=== PATIENT | female | born 1945 | race Caucasian/White ===

== ENCOUNTER → 2017-02-07 | Outpatient (CLI) | payer BC ==
[~2017-02-07] MED LIST: CHOL100010 PO; LEVO75TA PO; LISI10TA PO; TIMO0.2528 OPB
== END | disposition home or self-care (01) ==
LOC: C.PAPS 11:16
PROVIDERS: ATTEND Obstetrics & Gynecology
DX: Z12.4 Encounter for screening for malignant neoplasm of cervix (principal); Z78.0 Asymptomatic menopausal state

== ENCOUNTER → 2017-05-23 | Outpatient (CLI) | payer BC ==
[2017-05-23 14:18] LABS: ALT/SGPT 24 U/L (12-78); AST/SGOT 19 U/L (15-37); BLOOD UREA NITROGEN 13 mg/dl (7-18); BUN/CREATININE RATIO 15.9 (10-20); CALCIUM 8.9 mg/dl (8.5-10.1); CARBON DIOXIDE 23 mmol/L (21-32); CHLORIDE 106 mmol/L (98-107); GLUCOSE 78 mg/dl (70-99); POTASSIUM 3.9 mmol/L (3.5-5.1); SODIUM 138 mmol/L (136-145)
[2017-05-23 14:26] LABS: ALB/GLOB RATIO 1.2 (0.9-2); ALKALINE PHOSPHATASE 68 U/L (45-117); CHOLESTEROL 222 mg/dl (0-200); HDL CHOLESTEROL 55 mg/dl; TRIGLYCERIDES 144 mg/dl (0-150); VERY LOW DENSITY LIPOPROT CALC 29 mg/dl
== END | disposition home or self-care (01) ==
LOC: C.LABSPEC 12:40
PROVIDERS: ATTEND Internal Medicine
DX: I10 Essential (primary) hypertension (principal); E78.5 Hyperlipidemia, unspecified; E03.9 Hypothyroidism, unspecified

== ENCOUNTER → 2017-06-09 | Outpatient (CLI) | payer BC ==
--- NOTE | 2017-06-09 15:12 | MAMMOGRAPHY REPORT ---
BILATERAL DIGITAL SCREENING MAMMOGRAM WITH CAD: 06/09/2017 CLINICAL HISTORY: Routine screening. Patient has no complaints. TECHNIQUE: Bilateral CC and MLO views were obtained. Current study was also evaluated with a Compute r Aided Detection (CAD) system. COMPARISON: Comparison is made to exams dated: 06/03/2016 mammogram, 06/01/2015 mammogram, 4 mammogram, 05/27/2013 mammogram, 05/26/2012 mammogram, and 05/24/2011 mammogram - [facility]. BREAST COMPOSITION: The tissue of both breasts is heterogeneously dense, which may obscure small mas ses. FINDINGS: Loosely grouped punctate microcalcifications in the upper outer posterior right breast appe ars similar to prior mammograms dating back to at least 05/23/2010, therefore likely benign. No new suspicious mass, architectural distortion or cluster of microcalcifications is seen. IMPRESSION: ACR BI-RADS CATEGORY 1: NEGATIVE There is no mammographic evidence of malignancy. A 1 year screening mammogram is recommended. The pa tient will receive written notification of the results. Approximately 10% of breast cancers are not detected with mammography. A negative mammographic report should not delay biopsy if a clinically suggestive mass is present. Myriam Nelson M.D. ay/:06/09/2017 12:18:36 [place] [employer]older: Lynette RACHEL(Yahaira)(Damien)(BD), [facility] letter sent: Normal 1/2 BI-RADS Code: ACR BI-RADS Category 1: Negative
== END | disposition home or self-care (01) ==
LOC: C.MAMM 09:58
PROVIDERS: ATTEND Obstetrics & Gynecology
DX: Z12.31 Encounter for screening mammogram for malignant neoplasm of breast (principal)

== ENCOUNTER 2021-04-28 21:08 | Observation (INO) ==
[2021-04-28 21:57] LABS: Basophils # (auto) 0.09 K/uL (0-0.2); Basophils % (auto) 0.5 %; Eosinophils # (auto) 0.16 K/uL (0-0.5); Eosinophils % (auto) 0.9 %; Hematocrit (blood only) 43.9 % (37-47); Hemoglobin 15.2 g/dL (12.0-16.0); Immature Granulocytes # (auto) 0.06 K/uL (0.00-0.02); Immature Granulocytes % (auto) 0.3 %; Lymphocytes # (auto) 4.19 K/uL (1.2-3.4); Lymphocytes % (auto) 22.6 %; Mean Corpuscular Hemoglobin 28.4 pg (25-34); Mean Corpuscular Hgb Conc 34.6 g/dL (32-36); Mean Corpuscular Volume 81.9 fL (80-100); Mean Platelet Volume 9.5 fL (7.4-10.4); Monocytes # (auto) 1.15 K/uL (0.11-0.59); Monocytes % (auto) 6.2 %; Neutrophils # (auto) 12.87 K/uL (1.4-6.5); Neutrophils % (auto) 69.5 %; Platelet Count 255 K/uL (130-400); RDW Coefficient of Variation 13.4 % (11.5-14.5); RDW Standard Deviation 40.1 fL (36.4-46.3); Red Blood Count 5.36 M/uL (4.2-5.4); White Blood Count 18.52 K/uL (4.8-10.8)
[2021-04-28 22:14] LABS: Albumin Level 4.1 gm/dl (3.4-5.0); BUN Creatinine Ratio 18.2 (10-20); Calcium 9.4 mg/dl (8.5-10.1); Creatinine Clr Calc Pharmacy 26.2 ml/min; Est GFR (African American) 31.6 ml/min; Est GFR (Non-African American) 27.2 ml/min; Potassium 2.9 mmol/L (3.5-5.1)
[2021-04-28 22:17] LABS: Albumin Globulin Ratio 1.1 (0.9-2); Bilirubin,Total 0.8 mg/dl (0.2-1); Globulin 3.7 gm/dl (2.5-4.0); Total Protein 7.8 gm/dl (6.4-8.2)
[2021-04-28] MEDS ORDERED: SODIUM CHLORIDE 0.9% 1000ML 1,000 ML IV STA (22:35)
[2021-04-28] MEDS ORDERED: ERTAPENEM SODIUM 10 ML IV STA (22:35)
[2021-04-28] MEDS ORDERED: SODIUM CHLORIDE 0.9% 1000ML 1,000 ML IV ONE (22:35)
[2021-04-28] MEDS ORDERED: ONDANSETRON INJ 2 MG/ML 2 ML VIAL IV STA (22:35)
[2021-04-28] MEDS: POTASSIUM CHLORIDE / WTR 10 MEQ/100 ML PLCT IV SCH (22:51)
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
[2021-04-29 00:12] LABS: Appearance Urine Cloudy (Clear); Bilirubin Urine Negative (Negative); Blood Urine 1+ (Negative); Color Urine Yellow; Epithelial Cell Urine Auto >30 /lpf (0-5); Glucose Urine UA Negative (Negative); Ketones Urine 1+ (Negative); Leukocyte Esterase Urine Trace (Negative); Nitrite Urine Negative (Negative); Protein Urine Negative (Negative); Specific Gravity Urine 1.013 (1.000-1.030); Urobilinogen Urine Negative (Negative); pH Urine 5.5 (4.5-7.5)
[2021-04-29] MEDS: POTASSIUM CHLORIDE / WTR 10 MEQ/100 ML PLCT IV SCH (00:32)
[2021-04-29 00:34] LABS: Bacteria Urine Automated 1+ (Negative)
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
[2021-04-29] MEDS ORDERED: ERTAPENEM SODIUM 1,000 MG in SODIUM CHLORIDE 0.9% 50 ML IV SCH (02:13)
[2021-04-29] MEDS ORDERED: ONDANSETRON INJ 2 MG/ML 2 ML VIAL IV PRN (02:13)
[2021-04-29] MEDS ORDERED: LORazepam 0.5 MG TAB PO PRN (02:13)
[2021-04-29] MEDS ORDERED: ACETAMINOPHEN 325 MG TAB PO PRN (02:13)
[2021-04-29] MEDS ORDERED: SODIUM CHLORIDE 0.9% 1000ML 1,000 ML IV SCH (02:13)
--- NOTE | 2021-04-29 08:31 | CT Scan Report ---
ABDOMEN AND PELVIS CT WITHOUT CONTRAST CT DOSE: 821.38 mGycm HISTORY: vomiting, UTI TECHNIQUE: Multiaxial CT images of the abdomen and pelvis were performed without contrast. A dose lo wering technique was utilized adhering to the principles of ALARA. COMPARISON STUDY: None. FINDINGS: The lung bases are clear. The liver, spleen, adrenal glands, pancreas are unremarkable. Mil dly distended gallbladder. No gallbladder wall thickening. There are few bilateral renal hypo and hyp erdense lesions. These are incompletely characters on this noncontrast study but statistically repres ent simple and hyperdense cysts. No hydronephrosis. No renal or ureteral stones. No retroperitoneal l ymphadenopathy. The bladder, uterus, and bilateral adnexa are within normal limits. No pelvic free fl uid. Suboptimal evaluation for bowel pathology due to the lack of intravenous and oral contrast. Contreras steven, there is no definite bowel wall thickening or obstruction. Colonic diverticulosis. No evidence f or acute diverticulitis. Normal appendix. IMPRESSION: 1. No bowel wall thickening or obstruction. 2. Colonic diverticulosis. No evidence for acute diverticulitis. 3. Distended gallbladder. No gallbladder wall thickening. 4. Normal appendix. ACT 112: Negative or not required by law. Electronically signed by: Monty Higgins M.D. 04/29/2021 8:30 AM
[2021-04-29] MEDS: LEVOTHYROXINE SODIUM 100 MCG TABLET PO SCH (08:59)
[2021-04-29] MEDS: HEPARIN SOD 5,000 UNIT/0.5 ML VIAL SQ SCH ×2 (08:59→21:16)
[2021-04-29] MEDS: CHOLECALCIFEROL 1,000 UNITS 25 MCG TAB PO SCH (09:00)
[2021-04-29] MEDS: TAMOXIFEN CITRATE 10 MG TABLET PO SCH (09:00)
[2021-04-29] MEDS ORDERED: POTASSIUM CHLORIDE CRTAB 20 MEQ TABCR PO SCH (09:00)
--- NOTE | 2021-04-29 10:35 | XRay Report ---
XR chest 1V portable HISTORY: short of breath COMPARISON: Chest 08/03/2018. FINDINGS: The lungs are clear. Cardiac silhouette is normal in size. No pleural effusions. No pneumot horax. IMPRESSION: No acute process. ACT 112: Negative or not required by law. Electronically signed by: Monty Higgins M.D. 04/29/2021 10:33 AM
--- NOTE | 2021-04-29 18:19 | Communication Note ---
Date of Service: April 29, 2021 Bridge note Ashley is seen at the bedside this morning. She reports she feels much better. Feels that she is at/near her cognitive baseline, does not feel confused today. She is not having any fever/chills/sweats. Her nausea/diarrhea have greatly improved/resolved. Pleasant, reviewed course of illness and her UTI and use of Macrobid as potential causes/inciting factors. No additional questions or concerns at time of visit. General: A&Ox3. NAD. Cooperative. HEENT: Atraumatic, normocephalic. Pulm: CTAB A&P. -wheezes, -rales, -rhonchi. Symmetrical chest rise. No increase work of breathing. No respiratory distress. Cardiac: RRR, -mrg. Radial pulses intact and symmetrical. Abdominal: Nontender, nondistended, soft. BS present. Toxic encephalopathy 2/2 Macrodantin use, multifactorial with underlying UTI Continue UTI treatment as below Macrodantin discontinued Discussed with patient that this is not a good antibiotic choice for her in the future both because of poor efficacy and current reaction Improved, appears to be resolving/resolved Urinary tract infection Infected appearing UA. Leukocytosis to 18.52 Patient with history of ESBL E. coli in the past Continue ertapenem 1 g daily, narrow based on urine culture sensitivities YOLIS Creatinine elevated from baseline of normal to 1.8 HCTZ and lisinopril held Of note patient is in the process of converting from lisinopril to an ARB as outpatient although she does not remember the name of the ARB and is waiting for the medication in the mail Suspect prerenal BMP daily, fluid hydration When creatinine normalizes resume HCTZ, substitute losartan for lisinopril Hypokalemia Potassium on admission 2.9 Repletion ordered, being given MG pending Repeat BMP pending Patient is clinically improved, but requires IV antibiotic treatment this time for potential resistant UTI. Antibiotic will be narrowed based on sensitivities, if recurrent ESBL E. coli patient may need some guided IV on discharge
[2021-04-29] MEDS: POTASSIUM CHLORIDE CRTAB 20 MEQ TABCR PO SCH (21:16)
[2021-04-30] MEDS ORDERED: ERTAPENEM SODIUM 500 MG in SODIUM CHLORIDE 0.9% 50 ML IV SCH
[2021-04-30] MEDS: LEVOTHYROXINE SODIUM 100 MCG TABLET PO SCH (06:14)
[2021-04-30] MEDS: POTASSIUM CHLORIDE CRTAB 20 MEQ TABCR PO SCH ×2 (08:37→21:02)
[2021-04-30] MEDS: HEPARIN SOD 5,000 UNIT/0.5 ML VIAL SQ SCH ×2 (08:37→20:56)
[2021-04-30] MEDS: CHOLECALCIFEROL 1,000 UNITS 25 MCG TAB PO SCH (08:37)
[2021-04-30] MEDS: CALCIUM 600MG + VIT D 400 IU TAB PO SCH (08:37)
[2021-04-30] MEDS: TAMOXIFEN CITRATE 10 MG TABLET PO SCH (08:37)
[2021-04-30 09:00] LABS: Basophils # (auto) 0.05 K/uL (0-0.2); Basophils % (auto) 0.5 %; Eosinophils % (auto) 0.9 %; Hematocrit (blood only) 38.6 % (37-47); Hemoglobin 13.1 g/dL (12.0-16.0); Immature Granulocytes # (auto) 0.03 K/uL (0.00-0.02); Immature Granulocytes % (auto) 0.3 %; Lymphocytes # (auto) 2.15 K/uL (1.2-3.4); Lymphocytes % (auto) 19.9 %; Mean Corpuscular Hemoglobin 28.1 pg (25-34); Mean Corpuscular Hgb Conc 33.9 g/dL (32-36); Mean Corpuscular Volume 82.8 fL (80-100); Mean Platelet Volume 9.6 fL (7.4-10.4); Monocytes # (auto) 0.84 K/uL (0.11-0.59); Monocytes % (auto) 7.8 %; Neutrophils # (auto) 7.66 K/uL (1.4-6.5); Neutrophils % (auto) 70.6 %; Platelet Count 201 K/uL (130-400); RDW Coefficient of Variation 13.5 % (11.5-14.5); RDW Standard Deviation 40.9 fL (36.4-46.3); Red Blood Count 4.66 M/uL (4.2-5.4); White Blood Count 10.83 K/uL (4.8-10.8)
[2021-04-30 09:49] LABS: Albumin Level 3.3 gm/dl (3.4-5.0); BUN Creatinine Ratio 17.8 (10-20); Bilirubin,Total 0.4 mg/dl (0.2-1); Calcium 8.9 mg/dl (8.5-10.1); Creatinine Clr Calc Pharmacy 38.7 ml/min; Est GFR (Non-African American) 43.2 ml/min; Globulin 3.3 gm/dl (2.5-4.0); Magnesium 2.4 mg/dl (1.8-2.4); Potassium 3.6 mmol/L (3.5-5.1); Total Protein 6.6 gm/dl (6.4-8.2)
--- NOTE | 2021-04-30 16:14 | Electrocardiogram Report ---
Test Reason : Blood Pressure : / mmHG Vent. Rate : 109 BPM Atrial Rate : 109 BPM P-R Int : 158 ms QRS Dur : 080 ms QT Int : 332 ms P-R-T Axes : 000 080 144 degrees QTc Int : 447 ms Sinus tachycardia Low voltage QRS Inferior infarct , age undetermined Cannot rule out Anterior infarct , age undetermined Abnormal ECG When compared with ECG of 03-AUG-2018 12:34, Inferior and anterior infarcts are new Confirmed by Stephen Morris ([id number]) on 04/30/2021 4:13:58 PM Referred By: REFERRED SELF Confirmed By:Stephen Morris
[2021-04-30] MEDS ORDERED: NSS + 20MEQ KCL 20 MEQ/1,000 ML BAG IV SCH (17:30)
--- NOTE | 2021-04-30 20:45 | Ultrasound Report ---
US gallbladder CLINICAL HISTORY: distended GB on CT; N/V; eval cholecystitis TECHNIQUE: Multiple real-time sonographic images of the right upper quadrant were obtained. Comparison: None available at the time of this dictation. FINDINGS: The liver is diffusely echogenic in appearance with poor ultrasound penetration, with normal contour, which is consistent with fatty infiltration. No focal mass lesions are seen. No intrahepatic shakeel mitch dilatation is seen. There is a gallstone in the gallbladder neck which is not mobile. A small am ount of gallbladder sludge is also seen. The gallbladder wall measures 2 mm in diameter. There is no pericholecystic fluid present. The common duct measures 7 mm in diameter at the level of the hepatic artery. A sonographic Kaminski's sign was not elicited by the wool broker. The visualized portions of the pancreas appear normal. The right kidney shows normal echogenicity, cortical thickness and renal contour. A 3.9 x 3.9 x 4.5 c m cyst is seen at the lower pole. No hydronephrosis is seen. No ascites or free fluid is seen in Monique's pouch. IMPRESSION: Immobile gallstone in the gallbladder neck with layering sludge. However, no sonographic Kaminski's sig n or wall thickening is seen to suggest acute cholecystitis. ACT 112: Negative or not required by law. Electronically signed by: Neil Melo M.D. 04/30/2021 8:44 PM
[2021-04-30 21:14] LABS: Appearance Urine Clear (Clear); Bacteria Urine Automated Negative (Negative); Bilirubin Urine Negative (Negative); Blood Urine 1+ (Negative); Color Urine Yellow; Epithelial Cell Urine Auto >30 /lpf (0-5); Glucose Urine UA Negative (Negative); Ketones Urine 1+ (Negative); Leukocyte Esterase Urine Negative (Negative); Nitrite Urine Negative (Negative); Protein Urine Negative (Negative); RBC Urine Automated 0-4 /hpf (0-4); Specific Gravity Urine 1.015 (1.000-1.030); Urobilinogen Urine Negative (Negative); pH Urine 5.5 (4.5-7.5)
--- NOTE | 2021-04-30 23:11 | Hospitalist Progress Note ---
Date of Service April 30, 2021 Assessment & Plan (1) SIRS (systemic inflammatory response syndrome): Plan: presumed SIRS 2nd to UTI at time of presentation. had been treated with macrodantin as outpatient for presumed UTI earlier this month (again urine cx 04/20 grew contaminants). leukocytosis improved while hospitalized on IV ertapenem due to prior h/o ESBL e.coli but again this admit's urine cx also grew contaminants. (last 4 urine cultures in the EMR were all contaminated). Even if urine culture is false negative/contaminated - and indeed if there was truly a UTI - I would have expected much more robust response to Rx. Thus, was a UTI the culprit in her presentation? To settle things will repeat a u/a and urine cx but obtain via straight cath to get the best sample. Additionally, her GB on CT abd/pelvis was distended - obtain RUQ u/s to r/o smoldering cholecystitis as the cause of her presenting symptoms. re-eval in am with repeat labs and exam. (2) Abnormal computed tomography of gallbladder: Plan: obtain RUQ u/s of GB/liver r/o cholecystitis repeat LFTS am lipase at admission wnl (3) Adverse effect of drug in therapeutic use: Plan: ?N/V 2nd to macrodantin use? even if true this should not have caused diarrhea. macrodantin was prescribed on 04/20/21 x 7 days and thus should have been completed ~04/27/21. either way the macrodantin has been off for several days and any lingering GI symptoms at this point would not be from macrodantin. (4) UTI due to extended-spectrum beta lactamase (ESBL) producing Escherichia coli: Plan: h/o urine cx from 04/20 and 04/28 both with contaminants, however remains on ertapenem 1 g IV daily to cover for possibility of e.coli given the severity of her recent illness check I/O cath for ua and urine cx see discussion above re: possibility of another intra-abd process present (5) Cancer of right breast, stage 1, estrogen receptor positive: Plan: Continue tamoxifen 20 mg daily (6) Hypertension: Plan: Hold triamterene/HCTZ and lisinopril due to acute kidney injury (7) YOLIS (acute kidney injury): Plan: Creatinine 1.80 upon admission, with base 1.03 Hold lisinopril and triamterene/HCTZ IMPROVING still not drinking well - thus, give 1 additional of isotonic fluid overnight repeat BMP am (8) Acute dehydration: Plan: IV fluids as noted above x 1 additional liter gall bladder w/u as above if any diarrhea send for culture, c diff, etc (9) Hypothyroidism: Plan: Continue levothyroxine 100 mcg daily TSH 04/17/21 wnl (10) Anxiety: Plan: Continue as needed lorazepam Admission and Anticipated Discharge Date Admission Date: April 29, 2021 Subjective patient reports still feeling poorly this is despite Rx with macrodantin for suspected UTI earlier this month (outpatient culture from 04/20 grew contaminants) indeed she had prolific N/V with the macrodantin and had poor appetite for 7 + days also had had diarrhea - this is now resolved despite IV antibiotics since late Friday night she still has poor appetite, feeling full after eating just a little food she feels dehydrated she noted a pain under her right scapula/right flank earlier today - has not had that before denies any post-prandial abd pain, nausea or emesis over the last few months denies any current abd pain today Review of Systems Review of Systems: gen - no fever; poor appetite, fatigue persist cv - no chest pain pulm - no cough, no congestion GI - no abd pain, but still a little nauseous - no urinary complaints today musculo - right sided back pain Physical Exam Physical Exam: gen - tired appearing, NAD mouth - MM slightly dry neck - no JVD heart - RRR, s1 s2 lungs - cta b/l abd - soft, NT, ND, BS+, no HSM musculo - no paraspinal pain in lumbar region or flank/CVA tenderness b/l ext - no edema, pulses 2+ b/l skin - no rash Results & Data Results & Data ([facility]) Vital Signs (Past 12 Hours) Vital Signs Temp Pulse Pulse Pulse Resp BP Pulse Ox 04/30/21 18:56 37.0 C 81 81 18 130/76 95 04/30/21 16:05 36.9 C 81 18 133/77 97 04/30/21 15:43 73 04/30/21 12:44 36.8 C 83 18 154/75 H 100 Laboratory Results Laboratory Results - last 24 hr 04/30/21 04/30/21 04/30/21 08:41 08:41 20:50 WBC 10.83 H RBC 4.66 Hgb 13.1 Hct 38.6 MCV 82.8 MCH 28.1 MCHC 33.9 RDW Std Deviation 40.9 RDW Coeff of Luis M 13.5 Plt Count 201 MPV 9.6 Immature Gran % (Auto) 0.3 Neut % (Auto) 70.6 Lymph % (Auto) 19.9 [place] % (Auto) 7.8 Eos % (Auto) 0.9 Baso % (Auto) 0.5 Neut # (Auto) 7.66 H Lymph # (Auto) 2.15 [place] # (Auto) 0.84 H Eos # (Auto) 0.10 Baso # (Auto) 0.05 Immature Gran # (Auto) 0.03 H Sodium 138 Potassium 3.6 D Chloride 108 H Carbon Dioxide 22 Anion Gap 9.0 BUN 22 H Creatinine 1.23 H D Est Cr Clr Drug Dosing 38.7 Est GFR ( Amer) 50.0 Est GFR (Non-Af Amer) 43.2 BUN/Creatinine Ratio 17.8 Glucose 128 H Calcium 8.9 Magnesium 2.4 Total Bilirubin 0.4 AST 14 L ALT 22 Alkaline Phosphatase 40 L Total Protein 6.6 Albumin 3.3 L Globulin 3.3 Albumin/Globulin Ratio 1.0 Urine Color Yellow Urine Appearance Clear Urine pH 5.5 Ur Specific [place] 1.015 Urine Protein Negative Urine Glucose (UA) Negative Urine Ketones 1+ H Urine Blood 1+ H Urine Nitrite Negative Urine Bilirubin Negative Urine Urobilinogen Negative Ur Leukocyte Esterase Negative Urine WBC (Auto) 5-10 H Urine RBC (Auto) 0-4 U Hyaline Cast (Auto) 1-5 U Epithel Cells (Auto) >30 H Urine Bacteria (Auto) Negative PG Care Time/CCT Total # of Minutes Spent Total Time Spent with Patient: Total time spent is greater than 50% in coordination of care (as documented) at patient's floor/unit and/or counseling patient: Coding Level of Care Code 54554 Subseq Hosp Care Lvl 3 Diagnoses Adverse effect of drug in therapeutic use T50.905A UTI due to extended-spectrum beta lactamase (ESBL) producing Escherichia coli N39.0; B96.29; Z16.12 Cancer of right breast, stage 1, estrogen receptor positive C50.911; Z17.0 Hypertension I10 YOLIS (acute kidney injury) N17.9 Acute dehydration E86.0 Hypothyroidism E03.9 Anxiety F41.9 SIRS (systemic inflammatory response syndrome) R65.10 Abnormal computed tomography of gallbladder R93.2
[2021-04-30] MEDS: ERTAPENEM SODIUM 1,000 MG in SODIUM CHLORIDE 0.9% 50 ML IV SCH (23:53)
[2021-05-01] MEDS: LEVOTHYROXINE SODIUM 100 MCG TABLET PO SCH (06:13)
[2021-05-01 07:24] LABS: Basophils # (auto) 0.03 K/uL (0-0.2); Basophils % (auto) 0.3 %; Eosinophils # (auto) 0.08 K/uL (0-0.5); Eosinophils % (auto) 0.9 %; Hemoglobin 12.3 g/dL (12.0-16.0); Immature Granulocytes # (auto) 0.01 K/uL (0.00-0.02); Immature Granulocytes % (auto) 0.1 %; Lymphocytes # (auto) 2.24 K/uL (1.2-3.4); Lymphocytes % (auto) 23.9 %; Mean Corpuscular Hemoglobin 27.7 pg (25-34); Mean Corpuscular Hgb Conc 33.2 g/dL (32-36); Mean Corpuscular Volume 83.3 fL (80-100); Mean Platelet Volume 9.2 fL (7.4-10.4); Monocytes # (auto) 0.79 K/uL (0.11-0.59); Monocytes % (auto) 8.4 %; Neutrophils # (auto) 6.21 K/uL (1.4-6.5); Neutrophils % (auto) 66.4 %; Platelet Count 172 K/uL (130-400); RDW Coefficient of Variation 13.6 % (11.5-14.5); Red Blood Count 4.44 M/uL (4.2-5.4); White Blood Count 9.36 K/uL (4.8-10.8)
[2021-05-01] MEDS: TAMOXIFEN CITRATE 10 MG TABLET PO SCH (08:04)
[2021-05-01] MEDS: HEPARIN SOD 5,000 UNIT/0.5 ML VIAL SQ SCH ×2 (08:05→21:10)
[2021-05-01] MEDS: CHOLECALCIFEROL 1,000 UNITS 25 MCG TAB PO SCH (08:05)
[2021-05-01] MEDS: POTASSIUM CHLORIDE CRTAB 20 MEQ TABCR PO SCH ×2 (08:08→21:10)
[2021-05-01 08:36] LABS: Albumin Level 2.9 gm/dl (3.4-5.0); BUN Creatinine Ratio 16.4 (10-20); Bilirubin,Total 0.4 mg/dl (0.2-1); Calcium 8.2 mg/dl (8.5-10.1); Creatinine Clr Calc Pharmacy 50.2 ml/min; Est GFR (African American) 68.4 ml/min; Globulin 3.1 gm/dl (2.5-4.0); Potassium 4.4 mmol/L (3.5-5.1)
[2021-05-01] MEDS: ADVANCED PROBIOTIC 1250 MG CAPSULE PO SCH (14:42)
--- NOTE | 2021-05-01 21:37 | Hospitalist Progress Note ---
Date of Service May 01, 2021 Assessment & Plan (1) SIRS (systemic inflammatory response syndrome): Plan: presumed SIRS 2nd to UTI at time of presentation. had been treated with macrodantin as outpatient for presumed UTI earlier this month (again urine cx 04/20 grew contaminants). leukocytosis improved while hospitalized on IV ertapenem due to prior h/o ESBL e.coli but again this admit's urine cx also grew contaminants. (last 4 urine cultures in the EMR were all contaminated). I repeated a u/a and urine cx via straight cath - culture thus far negative. RUQ u/s with gallstone and sludge but no cholecystitis. Would simply treat for UTI x 7 days with ertapenem given prior h/o ESBL e.coli. (2) Abnormal computed tomography of gallbladder: Plan: CT a/p - distended gallbladder MICHAEL u/s - large gallstone, sludge - but no findings to suggest acute cholecystitis she has NO GI symptoms to suggest acute cholecystitis either monitor carefully for now (3) Adverse effect of drug in therapeutic use: Plan: ?N/V 2nd to macrodantin use? even if true this should not have caused diarrhea. macrodantin was prescribed on 04/20/21 x 7 days and thus should have been completed ~04/27/21. either way the macrodantin has been off for several days and any lingering GI symptoms at this point would not be from macrodantin. (4) UTI due to extended-spectrum beta lactamase (ESBL) producing Escherichia coli: Plan: h/o urine cx from 04/20 and 04/28 both with contaminants, however remains on ertapenem 1 g IV daily to cover for possibility of e.coli given the severity of her recent illness today is day #4 I/O cath for ua and urine cx sent; cx pending but thus far neg would empirically Rx with 7 days of ertapenem despite neg urine/blood cx's I encouraged her that if she has a future UTI to avoid CC specimen and always do straight cath to obtain urine samples (due to prior contamination issues) (5) Cancer of right breast, stage 1, estrogen receptor positive: Plan: Continue tamoxifen 20 mg daily (6) Hypertension: Plan: Hold triamterene/HCTZ and lisinopril due to acute kidney injury BPs still ok without them (7) YOLIS (acute kidney injury): Plan: Creatinine 1.80 upon admission, with base 1.03 Hold lisinopril and triamterene/HCTZ resolved (8) Acute dehydration: Plan: resolved eating/drinking much better (9) Hypothyroidism: Plan: Continue levothyroxine 100 mcg daily TSH 04/17/21 wnl (10) Anxiety: Plan: Continue as needed lorazepam Plan: PT eval tomorrow to assess readiness for d/c home Admission and Anticipated Discharge Date Admission Date: April 29, 2021 Subjective feeling "much" better today appetite improved energy better no N/V no abd pain no urinary symptoms has not had recurrent flank or back pain Review of Systems Review of Systems: gen - no fevers/chills CV - no chest pain pulm - no dyspnea or cough GI - no N/V Physical Exam Physical Exam: gen - looks much better today mouth - MMM neck - no JVD heart - RRR, s1 s2, no murmur lungs - cta b/l abd - soft, NT, ND, BS+, no HSM musculo - no paraspinal pain in lumbar region or flank/CVA tenderness b/l ext - no edema, pulses 2+ b/l skin - no rash Results & Data Results & Data ([facility]) Vital Signs (Past 12 Hours) Vital Signs Temp Pulse Resp BP Pulse Ox 05/01/21 19:00 36.8 C 82 20 130/75 97 05/01/21 16:06 37.1 C 77 18 137/79 96 05/01/21 12:00 36.6 C 83 20 120/72 95 Laboratory Results Laboratory Results - last 24 hr 04/30/21 05/01/21 05/01/21 20:50 07:08 07:08 WBC 9.36 RBC 4.44 Hgb 12.3 Hct 37.0 MCV 83.3 MCH 27.7 MCHC 33.2 RDW Std Deviation 41.0 RDW Coeff of Luis M 13.6 Plt Count 172 MPV 9.2 Immature Gran % (Auto) 0.1 Neut % (Auto) 66.4 Lymph % (Auto) 23.9 Kerr % (Auto) 8.4 Eos % (Auto) 0.9 Baso % (Auto) 0.3 Neut # (Auto) 6.21 Lymph # (Auto) 2.24 Kerr # (Auto) 0.79 H Eos # (Auto) 0.08 Baso # (Auto) 0.03 Immature Gran # (Auto) 0.01 Sodium 140 Potassium 4.4 D Chloride 112 H Carbon Dioxide 21 Anion Gap 7.0 BUN 16 Creatinine 0.95 Est Cr Clr Drug Dosing 50.2 Est GFR ( Amer) 68.4 Est GFR (Non-Af Amer) 59.0 BUN/Creatinine Ratio 16.4 Glucose 96 Calcium 8.2 L Total Bilirubin 0.4 AST 14 L ALT 18 Alkaline Phosphatase 37 L Total Protein 6.0 L Albumin 2.9 L Globulin 3.1 Albumin/Globulin Ratio 1.0 Urine WBC (Auto) 5-10 H Urine RBC (Auto) 0-4 U Hyaline Cast (Auto) 1-5 U Epithel Cells (Auto) >30 H Urine Bacteria (Auto) Negative PG Care Time/CCT Total # of Minutes Spent Total Time Spent with Patient: Total time spent is greater than 50% in coordination of care (as documented) at patient's floor/unit and/or counseling patient: Coding Level of Care Code 26300 Subseq Hosp Care Lvl 2 Diagnoses SIRS (systemic inflammatory response syndrome) R65.10 Abnormal computed tomography of gallbladder R93.2 Adverse effect of drug in therapeutic use T50.905A UTI due to extended-spectrum beta lactamase (ESBL) producing Escherichia coli N39.0; B96.29; Z16.12 Cancer of right breast, stage 1, estrogen receptor positive C50.911; Z17.0 Hypertension I10 YOLIS (acute kidney injury) N17.9 Acute dehydration E86.0 Hypothyroidism E03.9 Anxiety F41.9
[2021-05-01] MEDS: ERTAPENEM SODIUM 1,000 MG in SODIUM CHLORIDE 0.9% 50 ML IV SCH (23:43)
[2021-05-02] MEDS: LEVOTHYROXINE SODIUM 100 MCG TABLET PO SCH (05:45)
[2021-05-02] MEDS: HEPARIN SOD 5,000 UNIT/0.5 ML VIAL SQ SCH ×2 (08:26→20:47)
[2021-05-02] MEDS: TAMOXIFEN CITRATE 10 MG TABLET PO SCH (08:27)
[2021-05-02] MEDS: ADVANCED PROBIOTIC 1250 MG CAPSULE PO SCH (08:27)
[2021-05-02] MEDS: CHOLECALCIFEROL 1,000 UNITS 25 MCG TAB PO SCH (08:27)
[2021-05-02] MEDS: CALCIUM 600MG + VIT D 400 IU TAB PO SCH (08:27)
[2021-05-02] MEDS: POTASSIUM CHLORIDE CRTAB 20 MEQ TABCR PO SCH ×2 (08:31→22:40)
[2021-05-02 14:17] LABS: Basophils # (auto) 0.04 K/uL (0-0.2); Basophils % (auto) 0.4 %; Eosinophils # (auto) 0.12 K/uL (0-0.5); Eosinophils % (auto) 1.3 %; Hematocrit (blood only) 38.6 % (37-47); Hemoglobin 12.7 g/dL (12.0-16.0); Immature Granulocytes # (auto) 0.02 K/uL (0.00-0.02); Immature Granulocytes % (auto) 0.2 %; Lymphocytes # (auto) 2.52 K/uL (1.2-3.4); Lymphocytes % (auto) 28.3 %; Mean Corpuscular Hemoglobin 27.6 pg (25-34); Mean Corpuscular Hgb Conc 32.9 g/dL (32-36); Mean Corpuscular Volume 83.9 fL (80-100); Mean Platelet Volume 9.6 fL (7.4-10.4); Monocytes # (auto) 0.59 K/uL (0.11-0.59); Monocytes % (auto) 6.6 %; Neutrophils # (auto) 5.61 K/uL (1.4-6.5); Neutrophils % (auto) 63.2 %; Platelet Count 222 K/uL (130-400); RDW Coefficient of Variation 13.7 % (11.5-14.5); RDW Standard Deviation 41.6 fL (36.4-46.3)
[2021-05-02 14:56] LABS: Albumin Globulin Ratio 0.9 (0.9-2); Albumin Level 3.1 gm/dl (3.4-5.0); BUN Creatinine Ratio 9.7 (10-20); Calcium 9.2 mg/dl (8.5-10.1); Est GFR (African American) 49.6 ml/min; Est GFR (Non-African American) 42.8 ml/min; Globulin 3.5 gm/dl (2.5-4.0); Potassium 4.3 mmol/L (3.5-5.1); Total Protein 6.6 gm/dl (6.4-8.2)
[2021-05-02 14:59] LABS: Bilirubin,Total 0.5 mg/dl (0.2-1)
--- NOTE | 2021-05-02 20:24 | Hospitalist Progress Note ---
Date of Service May 02, 2021 Assessment & Plan (1) Abdominal discomfort, epigastric: Plan: will recheck LFTs, cbc, lipase will obtain MRCP - r/o a smoldering cholecystitis if everything is negative - episode of severe reflux? other? add PPI (2) SIRS (systemic inflammatory response syndrome): Plan: presumed SIRS 2nd to UTI at time of presentation. had been treated with macrodantin as outpatient for presumed UTI earlier this month (again urine cx 04/20 grew contaminants). leukocytosis improved while hospitalized on IV ertapenem due to prior h/o ESBL e.coli but again this admit's urine cx also grew contaminants. (last 4 urine cultures in the EMR were all contaminated). I repeated a u/a and urine cx via straight cath - culture remains negative. RUQ u/s with gallstone and sludge but no cholecystitis. Would simply treat for UTI x 7 days with ertapenem given prior h/o ESBL e.coli. MRCP as in #1 (3) Abnormal computed tomography of gallbladder: Plan: see #1 above (4) Adverse effect of drug in therapeutic use: Plan: ?N/V 2nd to macrodantin use? even if true this should not have caused diarrhea. macrodantin was prescribed on 04/20/21 x 7 days and thus should have been completed ~04/27/21. either way the macrodantin has been off for several days and any lingering GI symptoms at this point would not be from macrodantin. (5) UTI due to extended-spectrum beta lactamase (ESBL) producing Escherichia coli: Plan: h/o urine cx from 04/20 and 04/28 both with contaminants, however remains on ertapenem 1 g IV daily to cover for possibility of e.coli given the severity of her recent illness today is day #5 I/O cath for ua and urine cx sent; cx pending but thus far neg would empirically Rx with 7 days of ertapenem despite neg urine/blood cx's I encouraged her that if she has a future UTI to avoid CC specimen and always do straight cath to obtain urine samples (due to prior contamination issues) (6) Cancer of right breast, stage 1, estrogen receptor positive: Plan: Continue tamoxifen 20 mg daily (7) Hypertension: Plan: Hold triamterene/HCTZ and lisinopril due to acute kidney injury BPs still ok without them (8) YOLIS (acute kidney injury): Plan: Creatinine 1.80 upon admission, with base 1.03 resolved (9) Acute dehydration: Plan: resolved eating/drinking well at this point (10) Hypothyroidism: Plan: Continue levothyroxine 100 mcg daily TSH 04/17/21 wnl (11) Anxiety: Plan: Continue as needed lorazepam Plan: cleared for home by PT if MRCP, etc all neg and feeling well tomorrow d/c home would need 2 more days of IV ertapenem in [facility] for presumed UTI Admission and Anticipated Discharge Date Admission Date: April 29, 2021 Subjective was feeling well until last night when she had peanut butter w/ crackers following such "she had a lump" (pain, bloating sensation) in subxiphoid region lasted on/off much of the night then was slightly nauseous/dyspepsia this am symptoms resolved; has been able to eat since felt like she needed to burp but couldn't no urinary symptoms no back pain no RUQ pain feeling ok otherwise Review of Systems Review of Systems: gen - no fever/chills cv - no substernal cp pul - no cough/congestion GI - no vomiting Physical Exam Physical Exam: gen - NAD, looks good mouth - MMM neck - no JVD heart - RRR, s1 s2, no murmur chest - no pain to palpation lungs - cta b/l abd - soft, NT, ND, BS+, no HSM musculo - no paraspinal pain in lumbar region or flank/CVA tenderness b/l ext - no edema, pulses 2+ b/l skin - no rash Results & Data Results & Data ([facility]) Vital Signs (Past 12 Hours) Vital Signs Temp Pulse Resp BP Pulse Ox 05/02/21 15:58 37 C 85 18 149/65 H 96 05/02/21 11:54 36.7 C 78 18 132/79 96 05/02/21 10:20 94 Laboratory Results Laboratory Results - last 24 hr 05/02/21 05/02/21 13:50 13:50 WBC 8.90 RBC 4.60 Hgb 12.7 Hct 38.6 MCV 83.9 MCH 27.6 MCHC 32.9 RDW Std Deviation 41.6 RDW Coeff of Luis M 13.7 Plt Count 222 MPV 9.6 Immature Gran % (Auto) 0.2 Neut % (Auto) 63.2 Lymph % (Auto) 28.3 Waller % (Auto) 6.6 Eos % (Auto) 1.3 Baso % (Auto) 0.4 Neut # (Auto) 5.61 Lymph # (Auto) 2.52 Waller # (Auto) 0.59 Eos # (Auto) 0.12 Baso # (Auto) 0.04 Immature Gran # (Auto) 0.02 Sodium 137 Potassium 4.3 Chloride 110 H Carbon Dioxide 20 L Anion Gap 7.0 BUN 12 Creatinine 1.24 H Est Cr Clr Drug Dosing 39.0 Est GFR ( Amer) 49.6 Est GFR (Non-Af Amer) 42.8 BUN/Creatinine Ratio 9.7 L Glucose 124 H Calcium 9.2 Total Bilirubin 0.5 AST 22 ALT 20 Alkaline Phosphatase 41 L Total Protein 6.6 Albumin 3.1 L Globulin 3.5 Albumin/Globulin Ratio 0.9 Lipase 370 PG Care Time/CCT Total # of Minutes Spent Total Time Spent with Patient: Total time spent is greater than 50% in coordination of care (as documented) at patient's floor/unit and/or counseling patient: Coding Level of Care Code 53382 Subseq Hosp Care Lvl 2 Diagnoses SIRS (systemic inflammatory response syndrome) R65.10 Abnormal computed tomography of gallbladder R93.2 Adverse effect of drug in therapeutic use T50.905A UTI due to extended-spectrum beta lactamase (ESBL) producing Escherichia coli N39.0; B96.29; Z16.12 Cancer of right breast, stage 1, estrogen receptor positive C50.911; Z17.0 Hypertension I10 YOLIS (acute kidney injury) N17.9 Acute dehydration E86.0 Hypothyroidism E03.9 Anxiety F41.9 Abdominal discomfort, epigastric R10.13
[2021-05-02] MEDS ORDERED: PANTOprazole 40 MG TAB PO SCH (21:00)
[2021-05-02] MEDS: ERTAPENEM SODIUM 1,000 MG in SODIUM CHLORIDE 0.9% 50 ML IV SCH (23:42)
[2021-05-03] MEDS: LEVOTHYROXINE SODIUM 100 MCG TABLET PO SCH (06:13)
--- NOTE | 2021-05-03 07:45 | Magnetic Resonance Report ---
MR MRCP CLINICAL HISTORY: gallstones, CBD top-normal, abd pain COMPARISON: None available at the time of this dictation. TECHNIQUE: Multiplanar multisequence images were obtained of the abdomen with and without the adminis tration of contrast. FINDINGS: Lower chest: No acute abnormality Liver: Unremarkable. No focal lesions are seen. Gallbladder and biliary tree: A gallstone is seen in the gallbladder neck. The common bile duct measu res 6 mm in diameter, not enlarged. Pancreas: Unremarkable, no focal lesions. Spleen: Unremarkable. Adrenals: Unremarkable. Kidneys and ureters: There is a 4.5 cm renal cyst arising from the right kidney lower pole. Multiple additional tiny cysts are seen. Bowel: Unremarkable. Lymph nodes Retroperitoneal: Unremarkable. Mesenteric: Unremarkable. Peritoneum: Normal Vessels: Atherosclerotic calcifications are seen. Abdominal wall: Unremarkable. Bones: Degenerative changes in the visualized spine. IMPRESSION: Cholelithiasis without evidence of cholecystitis. Common bile duct is normal in size. ACT 112: Negative or not required by law. Electronically signed by: Neil Melo M.D. 05/03/2021 7:44 AM
[2021-05-03 07:46] VITALS: BP 132/68; TEMP 97.5; O2SAT 96
[2021-05-03] MEDS: TAMOXIFEN CITRATE 10 MG TABLET PO SCH (08:19)
[2021-05-03] MEDS: ADVANCED PROBIOTIC 1250 MG CAPSULE PO SCH (08:19)
[2021-05-03] MEDS: CHOLECALCIFEROL 1,000 UNITS 25 MCG TAB PO SCH (08:19)
[2021-05-03] MEDS: HEPARIN SOD 5,000 UNIT/0.5 ML VIAL SQ SCH (08:20)
[2021-05-03] MEDS: POTASSIUM CHLORIDE CRTAB 20 MEQ TABCR PO SCH (08:21)
[2021-05-03] MEDS: ERTAPENEM SODIUM 1,000 MG in SODIUM CHLORIDE 0.9% 50 ML IV SCH (13:15)
[2021-05-03 13:21] VITALS: PULSE 81
--- NOTE | 2021-05-03 13:31 | Discharge Summary ---
Date of Service May 03, 2021 Admission HPI Per Admitting Provider The patient is a 75-year-old female with a past medical history including estrogen receptor positive right breast cancer stage I, hypothyroidism, hypertension, vitamin D deficiency, and ESBL E. coli infection on 04/07/2019 with only oral medication sensitivity Macrodantin. Shortly after beginning this medication, she developed the above symptoms, and presents to the ED for assessment this evening. Discharge Data Allergies Allergy/AdvReac Type Severity Reaction Status Date / Time latanoprost Allergy Unknown RUNNY NOSE Verified 04/28/21 23:19 nitrofurantoin AdvReac Intermediate VOMITING/EN Verified 04/29/21 15:39 [From Macrobid] CEPHALOPATH Y adhesive tape AdvReac Mild HIVES Verified 04/28/21 23:19 codeine AdvReac Mild nausea and Verified 04/28/21 23:19 vomiting Consultations 04/28/21 23:43 ED Decision to Admit Stat Ordered Studies 04/28/21 22:35 CT abd pelvis wo con Urgent 04/30/21 15:47 US gallbladder Routine 05/02/21 16:09 MR MRCP Routine Hospital Course (1) Abdominal discomfort, epigastric: will recheck LFTs, cbc, lipase will obtain MRCP - r/o a smoldering cholecystitis if everything is negative - episode of severe reflux? other? add PPI (2) SIRS (systemic inflammatory response syndrome): presumed SIRS 2nd to UTI at time of presentation. had been treated with macrodantin as outpatient for presumed UTI earlier this month (again urine cx 04/20 grew contaminants). leukocytosis improved while hospitalized on IV ertapenem due to prior h/o ESBL e.coli but again this admit's urine cx also grew contaminants. (last 4 urine cultures in the EMR were all contaminated). I repeated a u/a and urine cx via straight cath - culture remains negative. RUQ u/s with gallstone and sludge but no cholecystitis. Would simply treat for UTI x 7 days with ertapenem given prior h/o ESBL e.coli. MRCP as in #1 (3) Abnormal computed tomography of gallbladder: see #1 above (4) Adverse effect of drug in therapeutic use: ?N/V 2nd to macrodantin use? even if true this should not have caused diarrhea. macrodantin was prescribed on 04/20/21 x 7 days and thus should have been completed ~04/27/21. either way the macrodantin has been off for several days and any lingering GI symptoms at this point would not be from macrodantin. (5) UTI due to extended-spectrum beta lactamase (ESBL) producing Escherichia coli: h/o urine cx from 04/20 and 04/28 both with contaminants, however remains on ertapenem 1 g IV daily to cover for possibility of e.coli given the severity of her recent illness today is day #5 I/O cath for ua and urine cx sent; cx pending but thus far neg would empirically Rx with 7 days of ertapenem despite neg urine/blood cx's I encouraged her that if she has a future UTI to avoid CC specimen and always do straight cath to obtain urine samples (due to prior contamination issues) (6) Cancer of right breast, stage 1, estrogen receptor positive: Continue tamoxifen 20 mg daily (7) Hypertension: Hold triamterene/HCTZ and lisinopril due to acute kidney injury BPs still ok without them (8) YOLIS (acute kidney injury): Creatinine 1.80 upon admission, with base 1.03 resolved (9) Acute dehydration: resolved eating/drinking well at this point (10) Hypothyroidism: Continue levothyroxine 100 mcg daily TSH 04/17/21 wnl (11) Anxiety: Continue as needed lorazepam Discharge Plan Discharge Items Patient Disposition: Home - Self-Care Reason For Visit: Dehydration, recent vomiting, UTI Discharge Diagnosis: 1. suspected urinary tract infection - resolved 2. nausea, vomiting - potentially due to nitrofurantoin antibiotic vs the urinary tract infection itself vs other - resolved 3. gallstone/gall bladder sludge - but imaging did not suggest a "sick" gall bladder (also known as cholecystitis) 4. multiple cysts on your kidneys Activity: As commented below Activity Comment: gradually increase your activities over the next few days as tolerated Non-emergency contact: Primary Care Provider Call non-emergency contact if: you have any medication questions, your symptoms worsen and you have a fever Follow-up/Referrals: [facility] [Outside] (report to the Medical treatment unit at [facility] on 05/04/21 for your last dose of IV antibiotic at the predetermined time) Clem Lynch MD [Primary Care Provider] - (within 1 week) Diet: Heart Healthy Addtl Attending Provider Instructions: Orlin Gardner were admitted to [facility] after being recently treated for UTI as an outpatient. During that treatment course you developed nausea, vomiting, diarrhea, and dehydration along with some confusion. Upon admission to [facility] you were dehydrated and your creatinine (kidney number) was high. It was suspected that you still had a UTI and thus antibiotics were continued. It took several days for you to feel better but ultimately all of the above improved. I was concerned that perhaps another issue was contributing to your recent illness and thus we performed several tests on your gall bladder. Although you have a gallstone and gall bladder sludge it does not appear that you have sickness of your gall bladder at this time. You need 1 additional dose of IV antibiotic. This can be done at the [facility] on 05/04/21. Please keep your IV clean/dry upon return home today. It will be removed after your dose of antibiotic is given tomorrow. Please HOLD your lisinopril at this time. However, resume your triamterene/HCTZ as previous. You can start this back tomorrow morning. Follow-up - see Dr Lynch in 1 week Return to [facility] if - * you develop recurrent fevers greater than 100 degrees * you develop severe diarrhea * you have recurrent abdominal pains * you have severe back or flank pain * you have recurrent vomiting * any other concerns It was our pleasure to care for you at [facility]! All the best, Dr Kaplan Pending Studies at Discharge: No Stand-Alone Forms: My [facility], Smoking Cessation Medications and DC Order Prescriptions: New ertapenem 1 gram recon soln 1 g IV ONCE 1 Days Qty: 1 RF: 0 pantoprazole 40 mg Tablet,Delayed Release (Dr/Ec) 40 mg PO HS Qty: 14 RF: 0 Continued triamterene-hydrochlorothiazid 37.5-25 mg tablet 1 tab PO DAILY RF: 0 Viactiv 650 mg-12.5 mcg-40 mcg tablet,chewable 1 tab PO Q OTHER DAY RF: 0 tamoxifen 20 mg tablet 20 mg PO DAILY RF: 0 levothyroxine 100 mcg capsule 100 mcg PO DAILY RF: 0 cholecalciferol (vitamin D3) [Vitamin D3] 25 mcg (1,000 unit) capsule 2,000 unit PO DAILY RF: 0 lorazepam 0.5 mg Tablet 0.5 mg PO BID PRN (Reason: Anxiety) RF: 0 potassium chloride 20 mEq tablet,ER particles/crystals 20 meq PO DAILY RF: 0 Discontinued lisinopril 10 mg tablet 5 mg PO DAILY RF: 0 Discharge Orders: Discharge Order (Routine); Ordered 05/03/21 Ordered By: Giles Lee/Other Patient Handouts: What Are Gallstones, Simple Kidney Cysts Admission Data Admit Date/Time: 04/29/21 00:47 Attending Provider: Giles Kaplan Admit Provider: Leonardo Goodwin Primary Care Provider: Clem Lynch Other Providers: Leonardo Goodwin Other Interventions: Discharge Summary Assessment (RN) Last Done: 05/03/21 13:20 Coding Diagnoses Abdominal discomfort, epigastric R10.13 SIRS (systemic inflammatory response syndrome) R65.10 Abnormal computed tomography of gallbladder R93.2 Adverse effect of drug in therapeutic use T50.905A UTI due to extended-spectrum beta lactamase (ESBL) producing Escherichia coli N39.0; B96.29; Z16.12 Cancer of right breast, stage 1, estrogen receptor positive C50.911; Z17.0 Hypertension I10 YOLIS (acute kidney injury) N17.9 Acute dehydration E86.0 Hypothyroidism E03.9 Anxiety F41.9
== END 2021-05-03 15:46 | disposition home or self-care (01) ==
LOC: ED 21:08 → SUATTDRO 04-29 00:47 → EDINP 04-29 00:47 → INTOOBSV 04-29 00:47 → EDINP 04-29 01:34 → 2W 04-30 01:18

== ENCOUNTER 2023-11-06 07:38 | Observation (INO) ==
--- NOTE | 2023-10-01 11:57 | PAT Medication Instructions ---
Medication Instructions Date of Service October 01, 2023 Home Medications Medication Instructions Recorded buspirone 7.5 mg tablet 7.5 mg PO ONCE PRN anxiety 30 days 01/06/23 #30 tabs potassium chloride 20 mEq 20 meq PO QAM 90 days #90 tabs 01/28/23 tablet,extended release(part/cryst) hydrochlorothiazide 25 mg tablet 25 mg PO QAM 90 days #90 tabs 04/28/23 ibandronate 150 mg tablet 150 mg PO MONTHLY #3 tabs 05/14/23 levothyroxine 100 mcg capsule 100 mcg PO QAM #90 caps 05/19/23 losartan 25 mg tablet 25 mg PO QAM #90 tabs 05/19/23 tetanus-diphtheria toxoids-Td 2 Lf 0.5 ml IM ONCE #0.5 mL 09/01/23 unit-2 Lf unit/0.5 mL IM suspension (TDVAX) calcium 650 mg-vitamin D3 12.5 mcg-vitamin K 40 mcg chewable tablet (Viactiv) 1 tab PO WK tamoxifen 20 mg tablet 20 mg PO QAM cholecalciferol (vitamin D3) 25 mcg (1,000 unit) capsule (Vitamin D3) 2,000 unit PO QAM buspirone 7.5 mg tablet 7.5 mg PO ONCE PRN anxiety potassium chloride 20 mEq tablet,extended release(part/cryst) 20 meq PO QAM hydrochlorothiazide 25 mg tablet 25 mg PO QAM ibandronate 150 mg tablet 150 mg PO MONTHLY levothyroxine 100 mcg capsule 100 mcg PO QAM losartan 25 mg tablet 25 mg PO QAM ibuprofen 200 mg tablet (Advil) 600 mg PO Q6H PRN Pain dorzolamide 2 %-timolol 0.5 % (PF) eye drops 1 drp ophthalmic (eye) BID tetanus-diphtheria toxoids-Td 2 Lf unit-2 Lf unit/0.5 mL IM suspension (TDVAX) 0.5 ml IM ONCE solifenacin 5 mg tablet (Vesicare) 5 mg PO QAM Continue as directed calcium 650 mg-vitamin D3 12.5 mcg-vitamin K 40 mcg chewable tablet (Viactiv) 1 tab PO WK (just do not take on morning of surgery) ibandronate 150 mg tablet 150 mg PO MONTHLY (just do not take on morning of surgery) tetanus-diphtheria toxoids-Td 2 Lf unit-2 Lf unit/0.5 mL IM suspension (TDVAX) 0.5 ml IM ONCE ASK your surgeon for instructions ibuprofen 200 mg tablet (Advil) 600 mg PO Q6H PRN Pain ASK your prescriber and surgeon tamoxifen 20 mg tablet 20 mg PO QAM DO NOT take the morning of surgery cholecalciferol (vitamin D3) 25 mcg (1,000 unit) capsule (Vitamin D3) 2,000 unit PO QAM potassium chloride 20 mEq tablet,extended release(part/cryst) 20 meq PO QAM hydrochlorothiazide 25 mg tablet 25 mg PO QAM losartan 25 mg tablet 25 mg PO QAM solifenacin 5 mg tablet (Vesicare) 5 mg PO QAM Take morning of surgery With a small sip of water, OTHERWISE NOTHING TO EAT OR DRINK AFTER MIDNIGHT: buspirone 7.5 mg tablet 7.5 mg PO ONCE PRN anxiety (if needed) levothyroxine 100 mcg capsule 100 mcg PO QAM dorzolamide 2 %-timolol 0.5 % (PF) eye drops 1 drp ophthalmic (eye) BID Take evening before surgery buspirone 7.5 mg tablet 7.5 mg PO ONCE PRN anxiety (if needed) dorzolamide 2 %-timolol 0.5 % (PF) eye drops 1 drp ophthalmic (eye) BID Other Notes If you have any questions please call us at [phone] or [phone] or [phone] or [phone]
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
[~2023-11-06 07:38] MED LIST changes: +BUPIVACAINE 0.5 % 5 MG/1 ML PF 10ML VIAL ONE; -CHOL100010 PO; -LEVO75TA PO; -LISI10TA PO; -TIMO0.2528 OPB
[2023-11-06] MEDS: ACETAMINOPHEN 500 MG TAB PO SCH ×2 (08:13→16:25)
[2023-11-06] MEDS: traMADol HCL 50 MG TABLET PO SCH (08:13)
[2023-11-06] MEDS: LR 60ML/HR IV SCH (08:14)
[2023-11-06] MEDS: dexAMETHasone**PF** 10 MG/ML VIAL IV SCH (08:14)
[2023-11-06] MEDS: CeleBREX 200 MG CAP PO SCH (08:14)
[2023-11-06] MEDS: FAMOTIDINE 20 MG TAB PO SCH (08:14)
[2023-11-06] MEDS: GABAPENTIN 300 MG CAP PO SCH (08:14)
[2023-11-06] MEDS: METOCLOPRAMIDE HCL 10 MG TABLET PO SCH (08:14)
--- NOTE | 2023-11-06 08:30 | History & Physical Bridge Note ---
Date of Service November 06, 2023 History & Physical Bridge Note I have examined the patient, reviewed the History & Physical and in the interval since the performance of the History & Physical I have noted the following changes of clinical significance: no changes noted
[2023-11-06] MEDS ORDERED: ONDANSETRON INJ 2 MG/ML 2 ML VIAL ONE (08:39)
[2023-11-06] MEDS ORDERED: PROPOFOL IV EMULSION 10 MG/ML 20 ML VIAL IV ONE (08:39)
[2023-11-06] MEDS ORDERED: fentaNYL citrate PF 100 MCG/2 ML VIAL ONE (08:40)
[2023-11-06] MEDS ORDERED: MIDAZOLAM HCL 1 MG/ML 2ML VIAL ONE (08:40)
[2023-11-06] MEDS: LR 500ML BOLUS, THEN 15ML/HR IV SCH (09:02)
[2023-11-06] MEDS ORDERED: fentaNYL citrate PF 100 MCG/2 ML VIAL IV PRN (09:04)
[2023-11-06] MEDS ORDERED: ATROPINE SULFATE 0.1 MG/ML 10ML SYR IV PRN (09:04)
[2023-11-06] MEDS ORDERED: ONDANSETRON INJ 2 MG/ML 2 ML VIAL IV PRN ×2 (09:04→13:55)
[2023-11-06] MEDS ORDERED: ePHEDrine sulfate 50 MG/ML AMP IV PRN (09:04)
[2023-11-06] MEDS: TRANEXAMIC ACID 1,000 MG **IV Pre-op IV SCH (09:23)
[2023-11-06] MEDS: ceFAZolin 2000MG 2,000 MG/15 ML SYR IV SCH ×2 (09:36→16:32)
[2023-11-06] MEDS ORDERED: ePHEDrine sulfate 50 MG/ML AMP ONE (10:11)
[2023-11-06] MEDS: ORTHO JOINT ANESTHETIC ONE (10:12)
[2023-11-06] MEDS ORDERED: KETOROLAC 30 MG/ML VIAL ONE (10:44)
[2023-11-06] MEDS: TRANEXAMIC ACID 1,000 MG **IV Intra-op IV SCH (10:45)
[2023-11-06] MEDS: ROPIV 0.5% 246mg, Ketorolac 30mg, EPINEPHrine 0.5mg in NSS INFIL SCH (10:45)
--- NOTE | 2023-11-06 10:48 | Post Operative Brief Note ---
Immediate Post Op Note v1 Date of Surgery November 06, 2023 Pre & Post Diagnosis Operation Date: 11/06/23 09:15 Pre-Op Diagnosis: Osteoarthritis Left Hip Post-Op Diagnosis: Osteoarthritis Left Hip I identified the patient and participated in the time-out.: Yes Procedure Operation Date: 11/06/23 09:15 Actual Procedures p Left Anterior Total Hip Replacement(Left) - Jigar Orellana MD Surgeon Jigar Orellana MD Balloon Maker Torsten Deleon PALuciana Estimated Blood Loss 75 Findings Consistent with Post-Op Diagnosis
--- NOTE | 2023-11-06 12:40 | Operative Report ---
Post Operative Report Pre & Post Diagnosis Operation Date: 11/06/23 09:15 Pre-Op Diagnosis: Osteoarthritis Left Hip Post-Op Diagnosis: Osteoarthritis Left Hip I identified the patient and participated in the time-out.: Yes Procedure Operation Date: 11/06/23 09:15 Actual Procedures p Left Anterior Total Hip Replacement(Left) - Jigar Orellana MD Surgeon Jigar Orellana MD Digital Imaging Specialist Torsten Deleon PA-C Estimated Blood Loss 75 Findings Consistent with Post-Op Diagnosis Severe degenerative changes with large periarticular osteophytes. Specimens Femoral head and bone and cartilage fragments Complications None Indications Components used: [employer] anthology hip system: Acetabulum size 48 with 25 mm dome screw and Oreo Oxinium liner. Femur size 5 standard offset with +422 mm Oxinium inner dual mobility head. Description of Procedure Following satisfactory spinal anesthesia the patient was supine on the operating room table. The left leg was placed in the traction and device in the right leg in the well-leg swartz. Positioning was confirmed with fluoroscopy. The leg was prepared with ChloraPrep and draped sterilely. A surgical timeout was performed. An anterior approach was performed in the interval between the sartorius and tensor muscles. The hemostasis was obtained. The circumflex femoral vessels were identified and coagulated. An anterior capsulotomy was performed exposing the arthritic femoral neck and head. Fluoroscopy was used to confirm femoral neck resection level which was completed and the arthritic femoral head was removed. The acetabular self-retaining retractor was placed. A portion of the calcified labral and osteophytic tissue was removed. The acetabulum was visualization was good. The acetabulum was reamed under direct vision and a 48 shell was impacted into a healthy bed into a position of 35 to 40 degrees of abduction and 25 degrees of anteversion confirmed with fluoroscopy. A dome screw was placed followed by the Oreo liner. A large inferior osteophyte was removed. Local anesthetic was placed and the wound was irrigated. The femur was placed into a position of external rotation extension and adduction. The femoral canal was identified and was prepared up to a size 5. A trial reduction with a standard offset neck and a +4 inner dual mobility head was performed. Fluoroscopy showed very good orientation of the components, good fit and fill of the proximal canal, and mandaeism of leg length and offset at the level of the lesser trochanter. The hip was dislocated. The trial components removed. Local anesthetic was placed. After irrigation the final stem and head complex insert of the same size was placed and the hip was reduced with fluoroscopy showing similar findings. The wound was irrigated with 500 cc of experience irrigation. There was very little bleeding. The tensor fascia was closed with a running suture of 0 V-Loc as well as the deeper subcutaneous fat layers. The more superficial layer was closed with 3 oh strata fix. Dermabond Prineo and a negative pressure wound dressing were applied. The patient was returned to her bed in stable condition. Note: Torsten MCKEON was present and assisted throughout due to the complicated nature of this case. He help with preparation and set up an kindergarten assistant throughout. He assisted with hemostasis and exposure throughout the procedure. He also closed the fascial subcutaneous and skin layers and applied the postop dressing. I attest to the content of the Intraoperative Record and any orders documented therein. Any exceptions are noted below.
[2023-11-06] MEDS ORDERED: bisacodyL 10 MG SUPP PR PRN (13:55)
[2023-11-06] MEDS ORDERED: METOCLOPRAMIDE HCL INJ 5 MG/ML 2 ML VIAL IV PRN (13:55)
[2023-11-06] MEDS ORDERED: MAGNESIUM HYDROXIDE SUSP 30 ML UDC PO PRN (13:55)
[2023-11-06] MEDS ORDERED: NALOXONE HCL 0.4 MG/1 ML VIAL/CARP IV PRN (13:55)
[2023-11-06] MEDS ORDERED: busPIRone 7.5 MG TAB PO PRN (13:55)
[2023-11-06 14:00] VITALS: RESP 16
--- NOTE | 2023-11-06 14:03 | Anesthesiology Progress Note ---
Date of Service November 06, 2023 Anesthesia Post Procedure Vital Signs Vital Signs: Temp Pulse Pulse Pulse Resp BP Pulse Ox 11/06/23 13:59 97.5 F L 75 16 155/79 H 99 11/06/23 13:15 62 20 148/72 H 97 11/06/23 12:45 63 13 149/69 H 96 11/06/23 12:30 61 10 L 144/68 H 96 11/06/23 12:10 74 12 144/71 H 98 11/06/23 11:55 67 16 144/70 H 98 11/06/23 11:40 97.3 F L 69 12 164/88 H 99 11/06/23 11:30 69 17 166/78 H 100 11/06/23 11:20 72 14 149/72 H 100 11/06/23 11:13 98.6 F 78 16 146/69 H 96 11/06/23 08:06 78 20 198/76 H 99 O2 Del Method O2 Flow Rate 11/06/23 13:59 Room Air 11/06/23 13:15 Room Air 11/06/23 12:45 Room Air 11/06/23 12:30 Room Air 11/06/23 12:10 Room Air 11/06/23 11:55 Room Air 11/06/23 11:40 Room Air 11/06/23 11:30 Oxymask 5 11/06/23 11:20 Oxymask 5 11/06/23 11:13 Oxymask 5 11/06/23 08:06 Room Air Transfer of Care Handoff Completed per policy Notes Mental Status: alert / awake / arousable and participated in evaluation Patient Amnestic to Procedure: Yes Nausea / Vomiting: adequately controlled Pain: adequately controlled Airway Patency, RR, SpO2: stable & adequate BP & HR: stable & adequate Hydration State: stable & adequate Neuraxial Anesthesia: was administered and sensory block is resolving Anesthetic Complications: no major complications apparent and Pt Satisfied with anesthetic care
--- NOTE | 2023-11-06 14:25 | Fluoroscopy Report ---
FL hip LT 1V CLINICAL HISTORY: LEFT ANTERIOR HIP COMPARISON STUDY: None. FLUOROSCOPY TIME: 8 seconds. FLUOROSCOPY IMAGES: 1 Ka,r: 1.3 mGy FINDINGS: There is a left total hip arthroplasty. The hardware is intact. No acute fracture or disloc ation. IMPRESSION: Fluoroscopic assistance as above ACT 112: Negative or not required by law. Electronically signed by: Monty Higgins M.D. 11/06/2023 2:23 PM
[2023-11-06] MEDS: SODIUM CHLORIDE 0.9% 1,000 ML IV SCH (15:11)
[2023-11-06] MEDS: FERROUS GLUCONATE 324 MG TAB PO SCH (16:27)
[2023-11-06] MEDS: DOCUSATE SODIUM 100 MG CAP PO SCH (20:40)
[2023-11-06] MEDS: SENNA 8.6 MG TAB PO SCH (20:40)
--- OUTSIDE RECORDS SUMMARY | 2023-11-06 22:11 | External Medical Summary | Continuity of Care Document ---
Author Name Unknown Organization [facility] [address] [id number] Care Team Providers Care Chief Engineer Research Name Role Phone Beata Gaston Primary Care Physician [phone] Encounter [facility] [phone] Date(s): 10/28/23 - 10/28/23 [facility] [address] [phone] [place] Encounter Diagnosis History of squamous cell carcinoma of skin(Discharge Diagnosis) - 10/28/23 Seborrheic keratoses(Discharge Diagnosis) - 10/28/23 Multiple nevi(Discharge Diagnosis) - 10/28/23 Hypertrophic scar(Discharge Diagnosis) - 10/28/23 Discharge Disposition: Home or Self Care Attending Physician: MD Bravo Sara B Allergies, Adverse Reactions, Alerts Substance Reaction Severity Status codeine stomach upset Active nitrofurantoin vomiting stomach upset Active latanoprost ophthalmic runny nose watery eyes Active Allergy Not found in Search 1 Hives Active Adhesive bandage rash Active 1sensitive to cocoa butter Assessment and Plan Extracted from: Title:Dermatology Office Visit Note Author:Senia stewart MD, Amberly Fisher Date:10/28/23 1.History of squamous cell carcinoma of skin Warning signs of skin cancer were reviewed. Sun protection reviewed. Follow-up in 6 months, sooner for any changing or growing lesions or acute concerns. I also recommended monthly self skin exams 1.Seborrheic keratoses Acute and chronic, within normal limits not bothering patient 3.Multiple nevi Chronic, within normal limits today 4.slight hypertrophic scar from Mohs right at the vermilion. I discussed a small Kenalog shot but she declined. We can do this in future if needed Medications hydroCHLOROthiazide 25 mg oral tablet Start: 01/20/23 10:34:00 EDT Start Date: 01/20/23 Status: Ordered ibandronate 150 mg oral tablet Start: 01/20/23 10:34:00 EDT Start Date: 01/20/23 Status: Ordered losartan 25 mg oral tablet Start: 01/20/23 10:34:00 EDT Start Date: 01/20/23 Status: Ordered Potassium Chloride (Cpa-Tmhw-Tex M20) 20 mEq oral tablet, extended release Start: 01/20/23 10:34:00 EDT Start Date: 01/20/23 Status: Ordered solifenacin 5 mg oral tablet Start: 01/20/23 10:34:00 EDT Start Date: 01/20/23 Status: Ordered Synthroid 75 mcg (0.075 mg) oral tablet Start: 07/15/13 8:25:00, 1 tab, PO, Daily Start Date: 07/15/13 Status: Ordered tamoxifen 20 mg oral tablet Start: 01/20/23 10:34:00 EDT Start Date: 01/20/23 Status: Ordered triamcinolone 0.1% topical cream Start: 01/24/23 9:02:00 EDT, 1 appl, topical, bid, Disp# 30 g, Refills: 2, To red rash BID PRN, Pharmacy: [facility]/pharmacy #[id number] Start Date: 01/24/23 Status: Ordered Vitamin D3 1000 intl units oral capsule Start: 07/15/13 8:25:00, 1 cap, PO, Daily Start Date: 07/15/13 Status: Ordered Mental Status 10/28/23 Barriers to Learning one year None evide nt Mandatory Health Literacy Documentation Yes Health Literacy Communication Barriers N ever Primary Language Northern Irish Problem List Condition Confirmation Course Effective Dates Status H ealth Status Informant Multiple nevi Confirmed Active Changing skin lesion Confirmed Active Rash Confirmed Active History of squamous cell carcinoma of skin Confirmed Active Hypertension Confirmed Active Hypertrophic scar Confirmed Active Hypothyroidism Confirmed Active Open wound Confirmed Active Osteoporosis Confirmed Active Seborrheic keratoses Confirmed Active Diagnosis Diagnosis Type Effective Dates Health Status Clinical Service Informant History of squamous cell carcinoma of skin Discharge Diagnosis 10/28/23 Hypertrophic scar Discharge Diagnosis 10/28/23 Multiple nevi Discharge Diagnosis 10/28/23 Seborrheic keratoses Discharge Diagnosis 10/28/23 Procedures Procedure Date Related Diagnosis Body Site Status Shave biopsy and cauterization of skin 04/23/23 Completed Mohs' micrographic surgery 04/07/23 Completed Colonoscopy 1 01/22/23 Completed Shave biopsy and cauterizati on of skin 2 01/20/23 Completed Surgery 3 2018 Completed Colonoscopy Completed Tubal ligation Completed 1COLO to cecum, 4 mm polyp at 40 cm CS/CF, 3 mm polpy at 30 cm CF, rectal polyp 3 mm CF, diverticulosis. 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 Subsequent ly got infected. Physical Exam Gen: Well appearing patient, no acute distress. Alert and oriented x3. Good mood. Skin examination completed of face, eyelids, scalp, hair, lips, ears, neck, chest, back, abdomen,upper and lower extremities bilaterally including hands, feet, fingers and toes, fingernails and toenails, pt declined buttocks and groin. Pt declined a fire engineer. Patient has an occasional seborrheic keratoses she points on the shoulders and forehead. She has scattered less than 6mm in diameter well circumscribed round brown macular nevi within normal limits under dermoscopy. No evidenceof recurrent skin cancer. No neck supraclavicular posterior occipital lymphadenopathy patient does have slight hypertrophic scar right at the lip Assessment/Plan 1.History of squamous cell carcinoma of skin Warning signs of skin cancer were reviewed. Sun protection reviewed. Follow-up in 6 months, sooner for any changing or growing lesions or acute concerns. I also recommended monthly self skin exams 1.Seborrheic keratoses Acute and chronic, within normal limits not bothering patient 3.Multiple nevi Chronic, within normal limits today 4.slight hypertrophic scar from Mohs right at the vermilion. I discussed a small Kenalog shot but she declined. We can do this in future if needed Problem List/Past Medical History Ongoing Changing skin lesion History of squamous cell carcinoma of skin Hypertension Hypothyroidism Multiple nevi Open wound Osteoporosis Rash Seborrheic keratoses Historical Breast cancer Procedure/Surgical History Shave biopsy and cauterization of skin| Service Date: 04/23/2023Mohs' micrographic surgery| Service Date: 04/07/2023olonoscopy| Service Date: 01/22/2023Shave biopsy and cauterization of skin| Service Date: 01/20/2023Surgery| Service Date: 2019Tubal ligationColonoscopy Medications cholecalciferol(Vitamin D3 1000 intl units oral capsule), 1000 Int_Unit= 1 cap, PO, Daily hydroCHLOROthiazide(hydroCHLOROthiazide 25 mg oral tablet) ibandronate(ibandronate 150 mg oral tablet) levothyroxine(Synthroid 75 mcg (0.075 mg) oral tablet), 75 mcg= 1 tab, PO, Daily losartan(losartan 25 mg oral tablet) potassium chloride(Potassium Chloride (Azl-Kbyi-Amk M20) 20 mEq oral tablet, extended release) solifenacin(solifenacin 5 mg oral tablet) taMOXIfen(tamoxifen 20 mg oral tablet) triamcinolone topical(triamcinolone 0.1% topical cream), 1 appl, topical, bid, 2 refills Allergies Adhesive bandagerash Allergy Not found in SearchHives codeinestomach upset latanoprost ophthalmicrunny nose, watery eyes nitrofurantoinvomiting, stomach upset Social History Smoking Status Former Smoker, quit > 1 yr Electronic Signature on File Electronically Reviewed/Signed by: Amberly Bravo MD Author Signature Dt/Tm:10/28/2023 10:48 AM Department of Dermatology [facility] Patient Care team information Care Team Personnel Name: MD Gaston Karissa A Position: Referring Member Role: Primary Care Provider Address: Address: [facility] [place] [facility] [place] [facility] [address] [place] Care Team Related Persons Name: MIGNON MORALES Address: home No Address Provided Name: MAGNUS REYES Address: home No Address Provided"
[2023-11-07] MEDS: LEVOTHYROXINE SODIUM 100 MCG TABLET PO SCH (05:45)
[2023-11-07 06:37] LABS: Basophils # (auto) 0.04 K/uL (0.00-0.20); Basophils % (auto) 0.3 %; Eosinophils # (auto) 0.01 K/uL (0.00-0.50); Eosinophils % (auto) 0.1 %; Hematocrit (blood only) 35.3 % (37.0-47.0); Hemoglobin 11.6 g/dl (12.0-16.0); Immature Granulocytes # (auto) 0.09 K/uL (0.01-0.20); Immature Granulocytes % (auto) 0.6 %; Lymphocytes # (auto) 1.58 K/uL (1.20-3.40); Lymphocytes % (auto) 10.2 %; Mean Corpuscular Hemoglobin 28.2 pg (25.0-34.0); Mean Corpuscular Hgb Conc 32.9 g/dL (32.0-36.0); Mean Corpuscular Volume 85.9 fL (80.0-100.0); Mean Platelet Volume 10.5 fL (9.4-12.4); Monocytes # (auto) 0.93 K/uL (0.11-0.59); Neutrophils # (auto) 12.83 K/uL (1.40-6.50); Neutrophils % (auto) 82.8 %; Platelet Count 235 K/uL (130-400); RDW Coefficient of Variation 13.9 % (11.5-14.5); Red Blood Count 4.11 M/uL (4.20-5.40); White Blood Count 15.48 K/ul (4.8-10.8)
--- NOTE | 2023-11-07 06:59 | Orthopedic Progress Note ---
Date of Service November 07, 2023 Assessment & Plan (1) Degenerative joint disease of left hip: Plan: Postop day 1 status post left direct anterior total hip arthroplasty PT/OT protocols. Weightbearing as tolerated. DVT prophylaxis-aspirin p.o. twice daily, SCDs, DISHA tse Pain management as written. Leukocytosis-likely secondary from surgical stress and/or preoperative steroids. Patient asymptomatic at this time. DC planning-planning for home health PT upon discharge. Plan for discharge to home today. Admission and Anticipated Discharge Date Admission Date: November 06, 2023 Subjective Postop day 1 Patient sleeping upon entering the room. Easily awoken. Patient states she had a good night. She woke up frequently but is feeling well this morning. Pain is controlled. Denies shortness of breath, chest pain, lightheadedness. She is hoping to go home today. Physical Exam Physical Exam: Rojelio dressing is clean, dry, and intact. Functioning well. Mild swelling around the incisional area consistent with surgery. Calves are soft nontender. Neurovascular is intact. Toes are mobile. Results & Data Vital Signs (Past 12 Hours) Vital Signs Temp Pulse Resp BP Pulse Ox O2 Del Method 11/07/23 02:33 36.4 C L 66 16 149/75 H 98 Room Air 11/06/23 23:05 36.4 C L 69 16 114/65 95 Room Air 11/06/23 19:15 36.5 C 79 16 128/66 96 Room Air Laboratory Results Laboratory Results WBC 15.48 K/ul (4.8-10.8) H 11/07/23 05:36 RBC 4.11 M/uL (4.20-5.40) L 11/07/23 05:36 Hgb 11.6 g/dl (12.0-16.0) L 11/07/23 05:36 Hct 35.3 % (37.0-47.0) L 11/07/23 05:36 MCV 85.9 fL (80.0-100.0) 11/07/23 05:36 MCH 28.2 pg (25.0-34.0) 11/07/23 05:36 MCHC 32.9 g/dL (32.0-36.0) 11/07/23 05:36 RDW Std Deviation 43.0 fL (36.4-46.3) 11/07/23 05:36 RDW Coeff of Luis M 13.9 % (11.5-14.5) 11/07/23 05:36 Plt Count 235 K/uL (130-400) 11/07/23 05:36 MPV 10.5 fL (9.4-12.4) 11/07/23 05:36 Immature Gran % (Auto) 0.6 % 11/07/23 05:36 Neut % (Auto) 82.8 % 11/07/23 05:36 Lymph % (Auto) 10.2 % 11/07/23 05:36 Shackelford % (Auto) 6.0 % 11/07/23 05:36 Eos % (Auto) 0.1 % 11/07/23 05:36 Baso % (Auto) 0.3 % 11/07/23 05:36 Neut # (Auto) 12.83 K/uL (1.40-6.50) H 11/07/23 05:36 Lymph # (Auto) 1.58 K/uL (1.20-3.40) 11/07/23 05:36 Shackelford # (Auto) 0.93 K/uL (0.11-0.59) H 11/07/23 05:36 Eos # (Auto) 0.01 K/uL (0.00-0.50) 11/07/23 05:36 Baso # (Auto) 0.04 K/uL (0.00-0.20) 11/07/23 05:36 Immature Gran # (Auto) 0.09 K/uL (0.01-0.20) 11/07/23 05:36 Impressions Hip X-Ray 11/06/23 09:15 FL hip LT 1V CLINICAL HISTORY: LEFT ANTERIOR HIP COMPARISON STUDY: None. FLUOROSCOPY TIME: 8 seconds. FLUOROSCOPY IMAGES: 1 Ka,r: 1.3 mGy FINDINGS: There is a left total hip arthroplasty. The hardware is intact. No acute fracture or dislocation. IMPRESSION: Fluoroscopic assistance as above ACT 112: Negative or not required by law. Electronically signed by: Monty Higgins M.D. 11/06/2023 2:23 PM
[2023-11-07 07:02] LABS: BUN Creatinine Ratio 28.6 (10-20); Calcium 8.2 mg/dl (8.6-10.3); Creatinine Clr Calc Pharmacy 46.4 ml/min; Est GFR (African American) 64.5 ml/min; Est GFR (Non-African American) 55.6 ml/min; Potassium 3.7 mmol/L (3.5-5.1)
[2023-11-07] MEDS: MULTIVITAMIN TAB PO SCH (07:48)
[2023-11-07] MEDS: OXYBUTYNIN CHLORIDE XL 5 MG TABCR PO SCH (07:48)
[2023-11-07] MEDS: CHOLECALCIFEROL 25 MCG (1000 UNITS) TAB PO SCH (07:49)
[2023-11-07 07:52] VITALS: BP 165/79; TEMP 97.7; O2SAT 100
[2023-11-07] MEDS: traMADol HCL 50 MG TABLET PO PRN (07:54)
[2023-11-07] MEDS: POTASSIUM CHLORIDE CRTAB 20 MEQ TABCR PO SCH (08:03)
[2023-11-07] MEDS: ASPIRIN 81 MG ECTAB PO SCH (09:24)
[2023-11-07] MEDS: LOSARTAN POTASSIUM 25 MG TAB PO SCH (09:24)
[2023-11-07] MEDS: hydroCHLOROthiazide 25 MG TAB PO SCH (09:24)
[2023-11-07] MEDS: TAMOXIFEN CITRATE 10 MG TABLET PO SCH (10:26)
[2023-11-07 10:42] VITALS: PULSE 91
--- NOTE | 2023-11-07 13:09 | Discharge Summary ---
Date of Service November 07, 2023 Admission HPI Per Admitting Provider Patient is a 77-year-old female with greater than 2-year history of left greater than right hip pain. Her pain is associated with decreased range of motion decreased standing and walking tolerance. She has difficulty getting up and down from a chair. She uses a cane or walker for most ambulatory activities and has limited standing and walking tolerance. She has radiographic evidence of severe disease of the hips left greater than right with large periarticular osteophytes and is admitted for elective left hip replacement as anticipated first of two-stage procedures. Admission Exam Per Admitting Provider Physical Exam: Weight is 72 kg BMI 28 General: Woman who appears to be her stated age. HEENT: NCAT, EOMI, PERRLA. Neck: Supple without bruits Heart: Regular rate and rhythm no murmurs Lungs: Breath sounds clear and present in all johansen Abdomen: Soft nontender bowel sounds are positive Extremities: The left hip is 3 mm shorter than the right passive range of motion is 5 to 90 degrees flexion with 0 degrees internal rotation all which reproduces groin pain. Neurological and vascular: Intact Principal Diagnosis 5 Discharge Data Allergies Allergy/AdvReac Type Severity Reaction Status Date / Time latanoprost Allergy Mild RUNNY NOSE Verified 11/06/23 08:16 nitrofurantoin AdvReac Severe VOMITING/ENCEPHALOPATHY/AFFECTED Verified 11/06/23 08:16 [From Macrobid] KIDNEYS codeine AdvReac Mild nausea and Verified 11/06/23 08:16 vomiting adhesive tape AdvReac Unknown Rash Verified 11/06/23 08:16 Procedures Performed Operation Date: 11/06/23 09:15 Actual Procedures p Left Anterior Total Hip Replacement(Left) - Jigar Orellana MD Ordered Studies 11/06/23 09:15 FL hip LT 1V Routine Hospital Course (1) Degenerative joint disease of left hip: Patient: MICHAEL REYES Admit Date: 11/06/23 MR#: [id number] Att Phy: Jigar Orellana MD Acct ID: [id number] Sallie Phy: Beata Gaston MD Date: 1945 Fam Phy: Age: 78 Location: 3E Sex: F Room/Bed: [facility] cc: ~ *NOTICE TO RECEIVING REPUBLICAN/AGENCY This information is strictly Confidential and protected under [place] law. [place] law prohibits you from making any further disclosure of this information unless further disclosure is expressly permitted by the written consent of the person to whom it pertains or is authorized by law. A general authorization for the release of medical or other information is not sufficient for this purpose. Hospital accepts no responsibility if the information is made available to any other person, INCLUDING THE PATIENT. Date of Service November 07, 2023 Assessment & Plan (1) Degenerative joint disease of left hip: Plan: Postop day 1 status post left direct anterior total hip arthroplasty PT/OT protocols. Weightbearing as tolerated. DVT prophylaxis-aspirin p.o. twice daily, SCDs, DISHA hose Pain management as written. Leukocytosis-likely secondary from surgical stress and/or preoperative steroids. Patient asymptomatic at this time. DC planning-planning for home health PT upon discharge. Plan for discharge to home today. Admission and Anticipated Discharge Date Admission Date: November 06, 2023 Subjective Postop day 1 Patient sleeping upon entering the room. Easily awoken. Patient states she had a good night. She woke up frequently but is feeling well this morning. Pain is controlled. Denies shortness of breath, chest pain, lightheadedness. She is hoping to go home today. Physical Exam Physical Exam: Marisol dressing is clean, dry, and intact. Functioning well. Mild swelling around the incisional area consistent with surgery. Calves are soft nontender. Neurovascular is intact. Toes are mobile. Results & Data Vital Signs (Past 12 Hours) Vital Signs Temp Pulse Resp BP Pulse Ox O2 Del Method 11/07/23 02:33 36.4 C L 66 16 149/75 H 98 Room Air 11/06/23 23:05 36.4 C L 69 16 114/65 95 Room Air 11/06/23 19:15 36.5 C 79 16 128/66 96 Room Air Laboratory Results Laboratory Results WBC 15.48 K/ul (4.8-10.8) H 11/07/23 05:36 RBC 4.11 M/uL (4.20-5.40) L 11/07/23 05:36 Hgb 11.6 g/dl (12.0-16.0) L 11/07/23 05:36 Hct 35.3 % (37.0-47.0) L 11/07/23 05:36 MCV 85.9 fL (80.0-100.0) 04/26/24 05:36 MCH 28.2 pg (25.0-34.0) 11/07/23 05:36 MCHC 32.9 g/dL (32.0-36.0) 11/07/23 05:36 RDW Std Deviation 43.0 fL (36.4-46.3) 11/07/23 05:36 RDW Coeff of Luis M 13.9 % (11.5-14.5) 11/07/23 05:36 Plt Count 235 K/uL (130-400) 11/07/23 05:36 MPV 10.5 fL (9.4-12.4) 11/07/23 05:36 Immature Gran % (Auto) 0.6 % 11/07/23 05:36 Neut % (Auto) 82.8 % 11/07/23 05:36 Lymph % (Auto) 10.2 % 11/07/23 05:36 [place] % (Auto) 6.0 % 11/07/23 05:36 Eos % (Auto) 0.1 % 11/07/23 05:36 Baso % (Auto) 0.3 % 11/07/23 05:36 Neut # (Auto) 12.83 K/uL (1.40-6.50) H 11/07/23 05:36 Lymph # (Auto) 1.58 K/uL (1.20-3.40) 11/07/23 05:36 [place] # (Auto) 0.93 K/uL (0.11-0.59) H 11/07/23 05:36 Eos # (Auto) 0.01 K/uL (0.00-0.50) 11/07/23 05:36 Baso # (Auto) 0.04 K/uL (0.00-0.20) 11/07/23 05:36 Immature Gran # (Auto) 0.09 K/uL (0.01-0.20) 11/07/23 05:36 Impressions Hip X-Ray 11/06/23 09:15 FL hip LT 1V CLINICAL HISTORY: LEFT ANTERIOR HIP COMPARISON STUDY: None. FLUOROSCOPY TIME: 8 seconds. FLUOROSCOPY IMAGES: 1 Ka,r: 1.3 mGy FINDINGS: There is a left total hip arthroplasty. The hardware is intact. No acute fracture or dislocation. IMPRESSION: Fluoroscopic assistance as above ACT 112: Negative or not required by law. Electronically signed by: Monty Higgins M.D. 11/06/2023 2:23 PM Signed By: <Electronically signed by Jigar Orellana MD> 11/07/23 0902 <Electronically signed by Torsten Deleon PA-C> 11/07/23 0659 Created: 11/07/23 0655 The status of this report is Signed. Draft = Not yet reviewed or approved by Medical Physician. Signed = Reviewed and approved by Medical Physician. Total Time Total Time Spent Total Time Spent (In Minutes): 5 Discharge Plan Discharge Items Patient Disposition: Home - Home Health Services Reason For Visit: Osteoarthritis Left Hip Discharge Diagnosis: osteoarthritis left hip Activity: Per Instructions section Weightbearing: Full weightbearing Non-emergency contact: Surgeon Call non-emergency contact if: you have any medication questions, your pain is not controlled, your temperature is above 101.5, your wound has increased redness and your wound has increased drainage Follow-up/Referrals: [facility] [Outside] (as per surgeon's office ) Jigar Orellana MD [Surgeon] - ( follow-up with Dr. Orellana or his PA in 2 weeks from the day of your surgery for your first postoperative visit.) Beata Gaston MD [Primary Care Provider] - Diet: Regular Addtl Attending Provider Instructions: DR. ABAD POST-OP INSTRUCTIONS FOR TOTAL HIP ARTHROPLASTY PLEASE REVIEW PRIOR TO SURGERY Day of Surgery You will be admitted and meet the nursing and anesthesia team. Dr. Orellana will see you and sign your operative side. Anesthesia will place your spinal anesthetic in the pre-op area Your surgery will be performed and last approximately 1 2 hours. Upon waking, you will notice a dressing and ice pack on your hip. You will remain in the recovery room for 1 2 hours, then be transferred to your room in the ambulatory surgical area if you are to go home the same day as your surgery or transferred to the orthopedic floor if you will be staying overnight. Most of Dr. Abad total hip patients go home the same day as surgery. This depends on how well you feel. Patients generally seem to feel better in their own home environment, and the risk of exposure to bad bugs is much lower. (Your post-operative medications will be sent to your pharmacy approximately 1-2 days prior to your procedure) Day 1 post-op (if you have an overnight stay in the hospital) You will have bloodwork drawn in the morning Physical therapy will evaluate you in the morning. You will start getting out of bed and ambulating with a walker. They will instruct you on hip motion exercises. Use your cold packs as instructed. This will decrease swelling and minimize pain. guest services director will discuss your discharge plan. Discharge will generally be around 11am Day 1 post-op (all patients) You will be taking Aspirin 81mg twice for 4 weeks to decrease the risk of a blood clot. You will most likely have a drain and a MARISOL (superficial wound VAC) dressing post-operatively. This will keep your incision dry as well as aid in early healing. The batteries will wear out and the VAC will lose suction around day 6 - 7 post-op. At that time, you may turn off the device and disconnect from the dressing. You must keep the dressing on until your first post- operative visit with Dr. Orellana. If the dressing appears to be saturated, please call our office. Day 2 14 post-op You will have a home nurse visit to assess your status and remove your drain on post-op day 2. You are permitted to shower immediately with the VAC. Do not soak the dressing let the shower flow on your opposite side, and pat dry the plastic. Once the dressing has been removed, you may shower normally with the incision exposed. Do not rub the area simply let soapy water run over the incision and lightly pat dry. Therapy will begin on post-op day 3. Your therapy prescription will be sent to your home therapy company/therapist You should continue doing your home exercises Week 2 post-op and forward You will have your first post-op appointment 2 weeks after surgery which should have been scheduled for you by our office. This appointment will be to check your incision, progression of therapy and pain control. Xrays will be taken to evaluate the prosthesis. You will continue to use a cane or a walker until you feel safe enough to stop using it. You will have a 6-week post-op appointment which should have been scheduled for you by our office. Xrays will be taken to evaluate the prosthesis. You will continue to advance range of motion. By 3 to 4 months after surgery, you should have almost full range of motion and may resume most activities. You may have some pain around the hip with certain activities this is completely normal. You will be scheduled for a 1 year post-op appointment to assess your outcome (sooner if Dr. Orellana feels necessary). Pain: The immediate post-op period after hip replacement surgery can be painful. However, the degree and frequency of the pain is generally much less than knee replacement surgery. You should take your pain medicine as you need it, especially prior to physical therapy and bedtime. Your pain will decrease and you may transition to a milder pain medicine (with less side effects, such as Tylenol) as soon as possible. It is common to have pain at night that interferes with sleep this can last for several months. Pain medicines can cause nausea and constipation do not take more than you need. You may be prescribed one or more of the following MEDICATIONS: 1. Celebrex this controls inflammation and makes pain medications mor effective it will be taken once or twice a day 2. Tylenol a pain medicine that can help to decrease your pain you should take 1000mg three times a day 3. Tramadol a pain medicine that can be taken every 4-6 hours (instead of Oxycodone) as needed to control your pain 4. Oxycodone a VERY strong pain medicine that can be taken every 4-6 hours (instead of Tramadol) as needed to control your pain. This medication has the most side effects and is usually not necessary for hip replacements. 5. Aspirin 81mg blood thinning medication to help minimize the risk of development of blood clots unfortunate side effects of pain medicine include nausea and constipation if you experience these issues or have any questions about your post-op medications, call [facility] at for assistance/advice on how to manage these issues Hip replacement surgery does not require a lot of aggressive physical therapy. Learning to walk safely and obeying hip precautions are most important. While in the hospital, you will be shown a series of home exercises you should perform these exercises 3 4 times daily in addition to physical therapy. After the completion of home therapy (approx.. 2 weeks), most therapy exercises can be done on your own. You should walk several times a day. Try not to be standing for more than an hour at a time during the first 4 weeks post-op as you may experience more swelling. If you develop swelling, you need to elevate your legs/feet at or above the level of your heart. You may progress from a walker to a cane to walking independently as you feel comfortable. Unless it is an emergency, YOUR ARE NOT PERMITTED TO HAVE ANY DENTAL CLEANING/WORK UNTIL 3 MONTHS AFTER SURGERY. You will be required to take an antibiotic prior to any dental cleaning or dental work in order to prevent your joint prothesis from getting infected. This medication is a one time per visit dose to be taken one hour prior to appointment. You may call our office for this prescription or your dentist may be willing to prescribe the medication. Remember to contact [facility] at if you develop any signs of infection which include increased swelling, pain, redness, drainage from incision, warmth, fever, chills or severe pain unrelieved by pain medication. If you develop any chest pain or shortness of breath, you should proceed immediately to the nearest Emergency Room. It is normal to run a low-grade fever after surgery. If your fever is consistent at 101.0 or higher, you will need to contact the office. Stand-Alone Forms: My [facility] Medications and DC Order Prescriptions: Continued Viactiv 650 mg-12.5 mcg-40 mcg tablet,chewable 1 tab PO WK Patient Comments: ABOUT ONCE A WEEK tamoxifen 20 mg tablet 20 mg PO QAM potassium chloride 20 mEq tablet,ER particles/crystals 20 meq PO QAM 90 Days Qty: 90 4RF hydrochlorothiazide 25 mg tablet 25 mg PO QAM 90 Days Qty: 90 4RF ibandronate 150 mg tablet 150 mg PO MONTHLY Qty: 3 3RF levothyroxine 100 mcg capsule 100 mcg PO QAM Qty: 90 1RF losartan 25 mg tablet 25 mg PO QAM Qty: 90 3RF cholecalciferol (vitamin D3) [Vitamin D3] 25 mcg (1,000 unit) capsule 2,000 unit PO QAM dorzolamide-timolol (PF) 2-0.5 % drops 1 drp ophthalmic (eye) BID TDVAX 2-2 Lf unit/0.5 mL suspension 0.5 ml IM ONCE Qty: 0.5 0RF Rx Instructions: please administer; okay to sub for tdap buspirone 7.5 mg tablet 7.5 mg PO ONCE PRN (Reason: anxiety) 30 Days Qty: 30 2RF solifenacin [Vesicare] 5 mg tablet 5 mg PO QAM Discontinued ibuprofen [Advil] 200 mg tablet 600 mg PO Q6H PRN (Reason: Pain) Rosa/Other Patient Handouts: Hip Arthroscopy: After Surgery, After Hip Surgery- Getting Dressed Admission Data Admit Date/Time: 11/06/23 10:54 Attending Provider: Jigar Orellana Admit Provider: Jigar Orellana Primary Care Provider: Beata Gaston Other Providers: [facility]Home [facility] Other Interventions: Discharge Summary Assessment (RN) Last Done: 11/07/23 10:39
== END 2023-11-07 11:38 | disposition home health service (06) ==
LOC: 3E 07:38 → ASU 07:38